=== PATIENT | female | born 1940 | race Two or more races ===

== ENCOUNTER 2017-10-25 21:48 | Emergency (ER) | payer MEDICARE ==
[2017-10-25] MEDS ORDERED: NS 0.9% 1000 ML* 1,000 ML IV ONE (21:57)
[2017-10-25 22:09] LABS: ABS Basophils 0 10^3/ul (0-0.2); ABS Eosinophils 0 10^3/ul (0-0.6); ABS Lymphocytes 3.5 10^3/ul (1.0-4.8); ABS Monocytes 0.7 10^3/ul (0-0.8); ABS Neutrophils 7.6 10^3/ul (1.5-7.7); ABS Nucleated RBC 0 10^3/ul; Eosinophil % 0.4 % (0-6); Hematocrit 39 % (35-47); Hemoglobin 12.6 g/dl (12.0-16.0); Lymphocyte % 29.4 % (25-47); Mean Corpuscular HGB Conc 33 g/dl (31-36); Mean Corpuscular Hemoglobin 30 pg (27-31); Mean Corpuscular Volume 91 fL (80-97); Mean Platelet Volume 9 um3 (7.4-10.4); Nucleated Red Blood Cells % 0.1; Platelet Count 183 10^3/ul (150-450); Red Blood Count 4.23 10^6/ul (4.0-5.4); Red Cell Distribution Width 14 % (10.5-15); White Blood Count 11.9 10^3/ul (3.5-10.8)
[2017-10-25 22:22] LABS: INR 1.16 (0.77-1.02)
[2017-10-25 22:24] LABS: EGFR Non-African American 72.7 (>60)
[2017-10-25] MEDS ORDERED: Iohexol 300* (CONTRAST) 10 ML SDV IV ONE (22:30)
[2017-10-25] MEDS ORDERED: Propofol* 200 ML ONE (23:34)
[2017-10-26] MEDS ORDERED: Ondansetron INJ* 2 MG/ML VIAL IV PRN (02:46)
[2017-10-26] MEDS ORDERED: Acetaminophen SUPP* 650 MG SUPP PR PRN (02:46)
[2017-10-26] MEDS ORDERED: Heparin VIAL(*) 5000 UNITS/ML VIAL (FIVE THOUSAND) IV SCH (03:00)
[2017-10-26] MEDS ORDERED: NS 0.9% 1000 ML* 1,000 ML IV SCH (03:00)
[2017-10-26] MEDS ORDERED: Heparin DRIP 25,000 UNITS(*) 25,000 UNITS/500 ML BAG IVPB SCH (03:00)
[2017-10-26] MEDS ORDERED: Propofol* 100 ML IV SCH (03:00)
[2017-10-26 05:02] LABS: ABS Basophils 0 10^3/ul (0-0.2); ABS Eosinophils 0 10^3/ul (0-0.6); ABS Lymphocytes 0.5 10^3/ul (1.0-4.8); ABS Monocytes 0.7 10^3/ul (0-0.8); ABS Nucleated RBC 0 10^3/ul; Eosinophil % 0 % (0-6); Hematocrit 35 % (35-47); Hemoglobin 11.5 g/dl (12.0-16.0); Lymphocyte % 3.1 % (25-47); Mean Corpuscular HGB Conc 33 g/dl (31-36); Mean Corpuscular Hemoglobin 29 pg (27-31); Mean Corpuscular Volume 90 fL (80-97); Mean Platelet Volume 9 um3 (7.4-10.4); Nucleated Red Blood Cells % 0; Platelet Count 161 10^3/ul (150-450); Red Blood Count 3.91 10^6/ul (4.0-5.4); Red Cell Distribution Width 14 % (10.5-15); White Blood Count 15.1 10^3/ul (3.5-10.8)
[2017-10-26 05:17] LABS: EGFR Non-African American 77.3 (>60)
[2017-10-26] MEDS ORDERED: Piperacillin/Tazobac ADVAN(*) 3.375 GM in NS 0.9% 100 ML* 100 ML IVPB ONE (05:17)
[2017-10-26] MEDS ORDERED: Levofloxacin 500 MG IVPREMIX(* 500 MG/100 ML BAG IVPB ONE (05:18)
--- NOTE | 2017-10-26 05:23 | ED ---
Singh Savage Angela, scribed for Mario Restrepo MD on 10/25/17 at 2212 . Adult Trauma - HPI Summary HPI Summary: This pt is a 77 y/o female presenting to [facility] via EMS for a fall and cardiac arrest. EMS reports the pt was going down the stairs when she fell down 8 steps. Fall was witnessed by family, per EMS. EMS notes the pt had no complaints prior to her fall. Pt was in cardiac arrest and had no CPR for approximately 4 minutes. After fire rescue arrived on scene, pt received 2 epinephrines and continued CPR. ROSC was obtained in 9 minutes. PMHx: Parkinson's disease. Per son, pt is able to ambulate independently up and down the stairs at baseline. - History of Current Complaint Stated Complaint: FALL Hx Obtained From: EMS Hx From Patient Unobtainable Due To: Extremis Mechanism of Injury: Fall Ambulatory at the Scene: No Loss of Consciousness: still comatose Onset/Duration: Started Minutes Ago, Traumatic, Still Present Pain Intensity: 0 - Allergy/Home Medications Allergies/Adverse Reactions: Allergies Allergy/AdvReac Type Severity Reaction Status Date / Time No Known Allergies Allergy Verified 12/06/15 18:35 PMH/Surg Hx/FS Hx/Imm Hx Endocrine/Hematology History: Reports: Hx Thyroid Disease Denies: Hx Diabetes Cardiovascular History: Denies: Hx Hypertension Respiratory History: Denies: Hx Asthma, Hx Chronic Obstructive Pulmonary Disease (COPD) GI History: Denies: Hx Ulcer Neurological History: Reports: Other Neuro Impairments/Disorders - Parkinson's Infectious Disease History: No Infectious Disease History: Denies: Hx Hepatitis, Hx Human Immunodeficiency Virus (HIV), Traveled Outside the [place] in Last 30 Days - Family History Known Family History: Positive: Unknown - due to level 5 caveat - extremis - Social History Alcohol Use: None Substance Use Type: Reports: None Hx Tobacco Use: Yes Smoking Status (MU): Former Smoker Review of Systems - ROS Summary Review of Systems Summary: ROS IS LIMITED DUE TO LEVEL 5 CAVEAT - extremis Negative: Fever Neurological: Other - unconscious All Other Systems Reviewed And Are Negative: No Physical Exam - Summary Physical Exam Summary: Appearance: GCS: 3 on arrival, no voluntary movements, agonal breathing, on backboard, orange blocks for head immobilization Skin: Warm and dry Eyes: pupils 3 mm bilaterally and sluggish to light. No voluntary extra ocular movements. Oculocephalic reflex not tested. ENT: No obvious abnormalities. Neck: Supple, nontender Respiratory: mechanical breath sounds with rhonchi bilaterally. Cardiovascular: Normal S1, S2. No murmurs. Normal distal pulses. Abdomen: Soft, nontender, mildly distended Musculoskeletal: unable to assess secondary to neurological status. Neurological: GCS: 3. Intubated and unresponsive on arrival. Psychiatric: Unable to assess. Triage Information Reviewed: Yes Vital Signs On Initial Exam: Initial Vitals Temp Pulse Resp BP Pulse Ox 96.8 F 82 12 133/75 82 10/25/17 22:02 10/25/17 22:02 10/25/17 22:02 10/25/17 22:02 10/25/17 22:02 Vital Signs Reviewed: Yes Completion Of Physical Exam Limited Due To: Extremis - Jose Raul Coma Scale Best Eye Response: 1 - None Best Motor Response: 1 - None Best Verbal Response: 1 - Intubated Coma Scale Total: 3.0 Diagnostics - Vital Signs Vital Signs Temp Pulse Resp BP Pulse Ox 10/25/17 22:02 96.8 F 82 12 133/75 82 - Laboratory Lab Results: Lab Results 10/25/17 10/25/17 10/25/17 Range/Units 21:57 21:59 21:59 WBC 11.9 H (3.5-10.8) 10^3/ul RBC 4.23 (4.0-5.4) 10^6/ul Hgb 12.6 (12.0-16.0) g/dl Hct 39 (35-47) % MCV 91 (80-97) fL MCH 30 (27-31) pg MCHC 33 (31-36) g/dl RDW 14 (10.5-15) % Plt Count 183 (150-450) 10^3/ul MPV 9 (7.4-10.4) um3 Neut % (Auto) 63.9 (38-83) % Lymph % (Auto) 29.4 (25-47) % [place] % (Auto) 6.0 (1-9) % Eos % (Auto) 0.4 (0-6) % Baso % (Auto) 0.3 (0-2) % Absolute Neuts (auto) 7.6 (1.5-7.7) 10^3/ul Absolute Lymphs (auto) 3.5 (1.0-4.8) 10^3/ul Absolute Monos (auto) 0.7 (0-0.8) 10^3/ul Absolute Eos (auto) 0 (0-0.6) 10^3/ul Absolute Basos (auto) 0 (0-0.2) 10^3/ul Absolute Nucleated RBC 0 10^3/ul Nucleated RBC % 0.1 INR (Anticoag Therapy) (0.77-1.02) APTT (26.0-36.3) seconds Patient Temperature ABG pH (7.35-7.45) ABG pH (Temp Correct) ABG pCO2 (35-45) mmHg ABG pCO2 (Temp Corrct ABG pO2 (80-100) mmHg ABG pO2 (Temp Correct ABG HCO3 (19-31) mmol/L ABG O2 Saturation (95-98) % ABG Base Excess (-2.0-2.0) Respiration Rate Ventilator Type Vent Mode FiO2 Inspiratory Time PEEP Pressure Support Pressure Control EPAP IPAP BiPAP Sodium 128 L (133-145) mmol/L Potassium 3.7 (3.5-5.0) mmol/L Chloride 96 L (101-111) mmol/L Carbon Dioxide 19 L (22-32) mmol/L Anion Gap 13 H (2-11) mmol/L BUN 13 (6-24) mg/dL Creatinine 0.77 (0.51-0.95) mg/dL Est GFR ( Amer) 93.5 (>60) Est GFR (Non-Af Amer) 72.7 (>60) BUN/Creatinine Ratio 16.9 (8-20) Glucose 263 H (70-100) mg/dL Lactic Acid 7.3 H* (0.5-2.0) mmol/L Calcium 8.3 L (8.6-10.3) mg/dL Total Bilirubin 0.50 (0.2-1.0) mg/dL AST 95 H (13-39) U/L ALT 12 (7-52) U/L Alkaline Phosphatase 103 (34-104) U/L Total Creatine Kinase 193 (10-223) U/L Troponin I 0.05 H* (<0.04) ng/mL B-Natriuretic Peptide ( - 100) pg/mL Total Protein 6.4 (6.4-8.9) g/dL Albumin 3.5 (3.2-5.2) g/dL Globulin 2.9 (2-4) g/dL Albumin/Globulin Ratio 1.2 (1-3) Blood Type Antibody Screen 10/25/17 10/25/17 10/25/17 Range/Units 21:59 21:59 21:59 WBC (3.5-10.8) 10^3/ul RBC (4.0-5.4) 10^6/ul Hgb (12.0-16.0) g/dl Hct (35-47) % MCV (80-97) fL MCH (27-31) pg MCHC (31-36) g/dl RDW (10.5-15) % Plt Count (150-450) 10^3/ul MPV (7.4-10.4) um3 Neut % (Auto) (38-83) % Lymph % (Auto) (25-47) % [place] % (Auto) (1-9) % Eos % (Auto) (0-6) % Baso % (Auto) (0-2) % Absolute Neuts (auto) (1.5-7.7) 10^3/ul Absolute Lymphs (auto) (1.0-4.8) 10^3/ul Absolute Monos (auto) (0-0.8) 10^3/ul Absolute Eos (auto) (0-0.6) 10^3/ul Absolute Basos (auto) (0-0.2) 10^3/ul Absolute Nucleated RBC 10^3/ul Nucleated RBC % INR (Anticoag Therapy) 1.16 H (0.77-1.02) APTT (26.0-36.3) seconds Patient Temperature ABG pH (7.35-7.45) ABG pH (Temp Correct) ABG pCO2 (35-45) mmHg ABG pCO2 (Temp Corrct ABG pO2 (80-100) mmHg ABG pO2 (Temp Correct ABG HCO3 (19-31) mmol/L ABG O2 Saturation (95-98) % ABG Base Excess (-2.0-2.0) Respiration Rate Ventilator Type Vent Mode FiO2 Inspiratory Time PEEP Pressure Support Pressure Control EPAP IPAP BiPAP Sodium (133-145) mmol/L Potassium (3.5-5.0) mmol/L Chloride (101-111) mmol/L Carbon Dioxide (22-32) mmol/L Anion Gap (2-11) mmol/L BUN (6-24) mg/dL Creatinine (0.51-0.95) mg/dL Est GFR ( Amer) (>60) Est GFR (Non-Af Amer) (>60) BUN/Creatinine Ratio (8-20) Glucose (70-100) mg/dL Lactic Acid (0.5-2.0) mmol/L Calcium (8.6-10.3) mg/dL Total Bilirubin (0.2-1.0) mg/dL AST (13-39) U/L ALT (7-52) U/L Alkaline Phosphatase (34-104) U/L Total Creatine Kinase (10-223) U/L Troponin I (<0.04) ng/mL B-Natriuretic Peptide 426 H ( - 100) pg/mL Total Protein (6.4-8.9) g/dL Albumin (3.2-5.2) g/dL Globulin (2-4) g/dL Albumin/Globulin Ratio (1-3) Blood Type B Positive Antibody Screen Negative 10/25/17 10/26/17 10/26/17 Range/Units 22:05 01:00 02:10 WBC (3.5-10.8) 10^3/ul RBC (4.0-5.4) 10^6/ul Hgb (12.0-16.0) g/dl Hct (35-47) % MCV (80-97) fL MCH (27-31) pg MCHC (31-36) g/dl RDW (10.5-15) % Plt Count (150-450) 10^3/ul MPV (7.4-10.4) um3 Neut % (Auto) (38-83) % Lymph % (Auto) (25-47) % [place] % (Auto) (1-9) % Eos % (Auto) (0-6) % Baso % (Auto) (0-2) % Absolute Neuts (auto) (1.5-7.7) 10^3/ul Absolute Lymphs (auto) (1.0-4.8) 10^3/ul Absolute Monos (auto) (0-0.8) 10^3/ul Absolute Eos (auto) (0-0.6) 10^3/ul Absolute Basos (auto) (0-0.2) 10^3/ul Absolute Nucleated RBC 10^3/ul Nucleated RBC % INR (Anticoag Therapy) (0.77-1.02) APTT (26.0-36.3) seconds Patient Temperature Not Reportable ABG pH 7.01 L* 7.35 (7.35-7.45) ABG pH (Temp Correct) Not Reportable ABG pCO2 67 H 38 (35-45) mmHg ABG pCO2 (Temp Corrct Not Reportable ABG pO2 226 H 256 H (80-100) mmHg ABG pO2 (Temp Correct Not Reportable ABG HCO3 13.5 L 21.7 (19-31) mmol/L ABG O2 Saturation 100.5 H 100.8 H (95-98) % ABG Base Excess -14.7 L -4.2 L (-2.0-2.0) Respiration Rate Not Reportable Ventilator Type Not Reportable Vent Mode aprv FiO2 80 Inspiratory Time 1.0 PEEP Not Reportable Pressure Support Not Reportable Pressure Control Not Reportable EPAP Not Reportable IPAP Not Reportable BiPAP Not Reportable Sodium (133-145) mmol/L Potassium (3.5-5.0) mmol/L Chloride (101-111) mmol/L Carbon Dioxide (22-32) mmol/L Anion Gap (2-11) mmol/L BUN (6-24) mg/dL Creatinine (0.51-0.95) mg/dL Est GFR ( Amer) (>60) Est GFR (Non-Af Amer) (>60) BUN/Creatinine Ratio (8-20) Glucose (70-100) mg/dL Lactic Acid (0.5-2.0) mmol/L Calcium (8.6-10.3) mg/dL Total Bilirubin (0.2-1.0) mg/dL AST (13-39) U/L ALT (7-52) U/L Alkaline Phosphatase (34-104) U/L Total Creatine Kinase (10-223) U/L Troponin I 0.32 H* (<0.04) ng/mL B-Natriuretic Peptide ( - 100) pg/mL Total Protein (6.4-8.9) g/dL Albumin (3.2-5.2) g/dL Globulin (2-4) g/dL Albumin/Globulin Ratio (1-3) Blood Type Antibody Screen 10/26/17 10/26/17 10/26/17 Range/Units 04:30 04:45 04:45 WBC 15.1 H (3.5-10.8) 10^3/ul RBC 3.91 L (4.0-5.4) 10^6/ul Hgb 11.5 L (12.0-16.0) g/dl Hct 35 (35-47) % MCV 90 (80-97) fL MCH 29 (27-31) pg MCHC 33 (31-36) g/dl RDW 14 (10.5-15) % Plt Count 161 (150-450) 10^3/ul MPV 9 (7.4-10.4) um3 Neut % (Auto) 92.5 H (38-83) % Lymph % (Auto) 3.1 L (25-47) % [place] % (Auto) 4.3 (1-9) % Eos % (Auto) 0 (0-6) % Baso % (Auto) 0.1 (0-2) % Absolute Neuts (auto) 14.0 H (1.5-7.7) 10^3/ul Absolute Lymphs (auto) 0.5 L (1.0-4.8) 10^3/ul Absolute Monos (auto) 0.7 (0-0.8) 10^3/ul Absolute Eos (auto) 0 (0-0.6) 10^3/ul Absolute Basos (auto) 0 (0-0.2) 10^3/ul Absolute Nucleated RBC 0 10^3/ul Nucleated RBC % 0 INR (Anticoag Therapy) (0.77-1.02) APTT 32.8 (26.0-36.3) seconds Patient Temperature ABG pH (7.35-7.45) ABG pH (Temp Correct) ABG pCO2 (35-45) mmHg ABG pCO2 (Temp Corrct ABG pO2 (80-100) mmHg ABG pO2 (Temp Correct ABG HCO3 (19-31) mmol/L ABG O2 Saturation (95-98) % ABG Base Excess (-2.0-2.0) Respiration Rate Ventilator Type Vent Mode FiO2 Inspiratory Time PEEP Pressure Support Pressure Control EPAP IPAP BiPAP Sodium (133-145) mmol/L Potassium (3.5-5.0) mmol/L Chloride (101-111) mmol/L Carbon Dioxide (22-32) mmol/L Anion Gap (2-11) mmol/L BUN (6-24) mg/dL Creatinine (0.51-0.95) mg/dL Est GFR ( Amer) (>60) Est GFR (Non-Af Amer) (>60) BUN/Creatinine Ratio (8-20) Glucose (70-100) mg/dL Lactic Acid (0.5-2.0) mmol/L Calcium (8.6-10.3) mg/dL Total Bilirubin (0.2-1.0) mg/dL AST (13-39) U/L ALT (7-52) U/L Alkaline Phosphatase (34-104) U/L Total Creatine Kinase (10-223) U/L Troponin I 0.38 H* (<0.04) ng/mL B-Natriuretic Peptide ( - 100) pg/mL Total Protein (6.4-8.9) g/dL Albumin (3.2-5.2) g/dL Globulin (2-4) g/dL Albumin/Globulin Ratio (1-3) Blood Type Antibody Screen 10/26/17 Range/Units 04:45 WBC (3.5-10.8) 10^3/ul RBC (4.0-5.4) 10^6/ul Hgb (12.0-16.0) g/dl Hct (35-47) % MCV (80-97) fL MCH (27-31) pg MCHC (31-36) g/dl RDW (10.5-15) % Plt Count (150-450) 10^3/ul MPV (7.4-10.4) um3 Neut % (Auto) (38-83) % Lymph % (Auto) (25-47) % [place] % (Auto) (1-9) % Eos % (Auto) (0-6) % Baso % (Auto) (0-2) % Absolute Neuts (auto) (1.5-7.7) 10^3/ul Absolute Lymphs (auto) (1.0-4.8) 10^3/ul Absolute Monos (auto) (0-0.8) 10^3/ul Absolute Eos (auto) (0-0.6) 10^3/ul Absolute Basos (auto) (0-0.2) 10^3/ul Absolute Nucleated RBC 10^3/ul Nucleated RBC % INR (Anticoag Therapy) (0.77-1.02) APTT (26.0-36.3) seconds Patient Temperature ABG pH (7.35-7.45) ABG pH (Temp Correct) ABG pCO2 (35-45) mmHg ABG pCO2 (Temp Corrct ABG pO2 (80-100) mmHg ABG pO2 (Temp Correct ABG HCO3 (19-31) mmol/L ABG O2 Saturation (95-98) % ABG Base Excess (-2.0-2.0) Respiration Rate Ventilator Type Vent Mode FiO2 Inspiratory Time PEEP Pressure Support Pressure Control EPAP IPAP BiPAP Sodium 129 L (133-145) mmol/L Potassium 3.9 (3.5-5.0) mmol/L Chloride 98 L (101-111) mmol/L Carbon Dioxide 21 L (22-32) mmol/L Anion Gap 10 (2-11) mmol/L BUN 17 (6-24) mg/dL Creatinine 0.73 (0.51-0.95) mg/dL Est GFR ( Amer) 99.4 (>60) Est GFR (Non-Af Amer) 77.3 (>60) BUN/Creatinine Ratio 23.3 H (8-20) Glucose 164 H (70-100) mg/dL Lactic Acid (0.5-2.0) mmol/L Calcium 8.5 L (8.6-10.3) mg/dL Total Bilirubin 0.70 (0.2-1.0) mg/dL AST 112 H (13-39) U/L ALT 29 (7-52) U/L Alkaline Phosphatase 88 (34-104) U/L Total Creatine Kinase (10-223) U/L Troponin I (<0.04) ng/mL B-Natriuretic Peptide ( - 100) pg/mL Total Protein 6.2 L (6.4-8.9) g/dL Albumin 3.5 (3.2-5.2) g/dL Globulin 2.7 (2-4) g/dL Albumin/Globulin Ratio 1.3 (1-3) Blood Type Antibody Screen Result Diagrams: 10/26/17 04:45 10/26/17 04:45 Lab Statement: Any lab studies that have been ordered have been reviewed, and results considered in the medical decision making process. - Radiology Chest XR Xray Interpretation: Positive (See Comments) - ET tube in the correct position. Bilateral patchy infiltrate suspicious for pneumonia. Radiology Interpretation Completed By: ED Physician - CT CT Brain CT Interpretation: Positive (See Comments) - IMPRESSION: Left sphenoid sinusitis. Dr. Restrepo has reviewed this radiology report. CT Interpretation Completed By: Radiologist CT Neck CT Interpretation: Positive (See Comments) - IMPRESSION: Slightly displaced fracture of the anterior arch and left posterior lamina of C1. Dr. Restrepo has reviewed this radiology report. CT Interpretation Completed By: Radiologist CT Chest/Abdomen/Pelvis CT Interpretation: Positive (See Comments) - IMPRESSION: Age-indeterminate compression fracture of T12 with 18% loss of anterior height. Airspace opacities in the lungs suggests aspiration or pneumonia. Diffuse groundglass densities and prominent interstitium suggest fluid overload. There are nondisplaced fractures of the right anterior second third and fourth ribs. Dr. Restrepo has reviewed this radiology report. CT Interpretation Completed By: Radiologist - EKG 21:50 Cardiac Rate: NL EKG Rhythm: Sinus Rhythm - at 81 bpm EKG Interpretation: RBBB and LAFB. 02:10 Cardiac Rate: Bradycardia EKG Rhythm: Sinus Bradycardia - at 53 bpm - Additional Comments Diagnostic Additional Comments: MRI Brain, as read by radiologist: IMPRESSION: No acute findings. MRI Cervical Spine, as read by radiologist: IMPRESSION: Study limited by motion artifact. The fracture C1 is noted on CT. Cervical cord appears normal without hematoma or steonsis. MRI Thoracic Spine, as read by radiologist: IMPRESSION: 20-25% compression fracture at T12. Dr. Restrepo has reviewed these radiology report. Adult Trauma Course/Dx - Course Assessment/Plan: Intubated prior to arrival. ET tube verified with auscultation and chest XR. CTs show fracture of C1, right sided rib fractures x3, and thoracic compression fracture. MRI findings unremarkable. Pt scheduled to transfer to [facility] for trauma center evaluation and further ICU care. I spoke with her family on the phone who agrees with transfer. Vital signs are stable. Sedated with propofol. After discussion with Dr. Blanchard, it was decided that transfer to [facility] for trauma evaluatino and further icu care is appropriate. Dr. Al accepts the pt for transfer at [facility]. - Diagnoses Provider Diagnoses: Respiratory failure, Combined resp. and metabolic acidosis, C1 cervical fracture, Multiple fractures of ribs of right side, Cardiac arrest, Aspiration pneumonia, Compression fracture of thoracic spine - Physician Notifications Discussed Care Of Patient With: Jim Shetty Time Discussed With Above Provider: 23:39 Instructed by Provider To: Other - Dr. Shetty, radiologist, is calling about CT results. [23:53] I discussed pt care with Dr. Cramer, neurosurgeon. [00:01] I spoke with Dr. Johnson, radiologist, to get approval for MRI. [00:21] I discussed case with Dr. Blanchard, who will see the pt in the ED. [00:25] I spoke with Dr. Ling, process control manager. - Critical Care Time Critical Care Time: 75-104 min - 120 minutes - Excluding procedures I spend time speaking with the family and other providers, titrating medications, and monitoring clinical response. Discharge - Discharge Plan Condition: Guarded Disposition: TRANS HIGHER LVL OF CARE FAC Discharge Disposition Comment: [facility] Referrals: Daisy Conti MD [Primary Care Provider] - The documentation as recorded by the Singh kim Angela accurately reflects the service I personally performed and the decisions made by me, Mario Restrepo MD.
[2017-10-26 05:42] LABS: Urine Appearance Cloudy; Urine Blood 2+ (Negative); Urine Color Yellow; Urine Ketones Negative (Negative); Urine Protein 2+(100 mg/dL) (Negative); Urine Specific Gravity 1.029 (1.010-1.030); Urine Urobilinogen Negative (Negative)
[2017-10-26 06:17] VITALS: BP 125/58
--- NOTE | 2017-10-26 08:05 | RAD ---
HISTORY: Trauma COMPARISONS: None VIEWS: 1: frontal portable view of the chest and upper abdomen at 10:35 PM, performed supine on a backboard. FINDINGS: LINES AND TUBES: The endotracheal tube is noted with the tip overlying the trachea between the clavicles and the susan. CARDIOMEDIASTINAL SILHOUETTE: The cardiomediastinal silhouette is normal for portable technique. PLEURA: The costophrenic angles are sharp. No pleural abnormalities are noted. LUNG PARENCHYMA: There is diffuse alveolar opacification of the left lung field with patchy alveolar opacification of the right lung field. There is diffuse reticular pattern. ABDOMEN: The upper abdomen is clear. There is no subphrenic gas. BONES AND SOFT TISSUES: No bone or soft tissue abnormalities are noted. IMPRESSION: 1. LINES AND TUBES ABOVE. 2. AIRSPACE DISEASE OF THE LUNGS BILATERALLY, GREATER ON THE LEFT THAN THE RIGHT WITH A DIFFUSE INTERSTITIAL OPACIFICATIONS, SUGGESTIVE OF PULMONARY ALVEOLAR AND INTERSTITIAL EDEMA
--- NOTE | 2017-10-26 08:14 | RAD ---
indication: Fall after cardiac arrest. COMPARISON: None A CT scan of the brain and c-spine was performed without intravenous contrast enhancement. Contiguous axial sections were obtained from the lung apices through the vertex. Evaluation of the brain and C-spine is limited by motion artifact. BRAIN: The ventricles, cisterns and sulci are within normal limits. No significant focal abnormality or mass effect is seen. The tucker-white differentiation is adequately maintained. There is no intracranial hemorrhage. No significant bony abnormality is present. The mastoid air cells are appropriately aerated. There is complete opacification of the left sphenoid sinus. The remaining visualized paranasal sinuses are adequately aerated. C-SPINE: An endotracheal tube and nasogastric tube are noted in appropriate position. Depicted best on the axial plane images there is fracture at the left anterior arch and left posterior lamina of the C1 vertebral body (axial image 13 of 71). At the anterior fracture site there is approximately 4 mm of distraction at the fracture site. The dens appears to be intact. There is no significant widening at the atlantodental interval. Multilevel degenerative changes of the cervical spine includes loss of intervertebral disc height. There is reversal of the normal cervical lordosis with the apex at C5/C6. At the lower cervical spine there is near complete obliteration of the intervertebral disc space with exuberant marginal osteophyte formation. There is no hyperdense material in the cervical canal to indicate hemorrhage. The visualized musculature and soft tissues are normal. There is no gross lymphadenopathy visualized. There are groundglass opacifications at the bilateral lung apices. IMPRESSION: 1. No calvarial fracture or acute intracranial hemorrhage. 2. Fracture of the C1 vertebra involving the left anterior arch and left posterior lamina.
--- NOTE | 2017-10-26 08:17 | RAD ---
HISTORY: Trauma, unwitnessed fall, cardiac arrest COMPARISONS: None TECHNIQUE: Multiple contiguous axial CT scans were obtained of the chest, abdomen, and pelvis after the administration of intravenous contrast. Coronal and sagittal multiplanar reformations are submitted for review.. Oral contrast was not administered. Delayed images were obtained through the abdomen and pelvis. FINDINGS: The study is limited by patient motion artifact. CHEST NECK AND THYROID: The lower neck and thyroid are unremarkable. CHEST WALL: There is no lower cervical, axillary, or supraclavicular lymphadenopathy by size criteria. HEART AND PERICARDIUM: The heart is unremarkable. AORTA AND PULMONARY VASCULATURE: The aorta and pulmonary vasculature are normal. MEDIASTINUM: There is no mediastinal lymphadenopathy by size criteria. AMANDA: There is no hilar lymphadenopathy by size criteria. AIRWAY AND ESOPHAGUS: An endotracheal tube is noted within the trachea with the tip in the clavicles and the susan. A gastric tube is noted with the tip in the stomach in a prepyloric position. LUNG PARENCHYMA: There is consolidation of the left lower lobe. There is ground less opacification of the upper lobes bilaterally and of the right middle and lower lobes. There is interlobular septal thickening with an apical predominance. PLEURA: No pleural abnormalities are noted. BONES AND SOFT TISSUES: There are nondisplaced fractures of the right second, third, and fourth ribs. Evaluation of the sternum is limited by motion artifact. A sternal fracture and appearance. ABDOMEN/PELVIS: LIVER: The liver is normal in shape, size, contour, and attenuation. BILE DUCTS: There is no intrahepatic or extrahepatic biliary dilatation. GALLBLADDER: The gallbladder is normal, without pericholecystic inflammatory change. PANCREAS: The pancreas is normal, without mass or ductal dilatation. SPLEEN: Normal in size and appearance. UPPER GI TRACT: As noted above, gastric tube is noted with the tip in a prepyloric position.. SMALL BOWEL & MESENTERY: The small bowel is normal in contour, course, and caliber. There is no obstruction or dilatation. COLON: The colon is normal in contour, course, caliber. There is no pericolonic inflammatory change. ADRENALS: Normal bilaterally. KIDNEYS: The kidneys are normal in shape, size, contour, and axis. There is no hydronephrosis or nephrolithiasis. BLADDER: The bladder is collapsed around a Anderson catheter PELVIC ORGANS: The uterus is enlarged with calcified fibroids. AORTA: There is calcific atherosclerotic disease of the abdominal aorta and its branches, without aneurysmal dilatation IVC: Unremarkable LYMPH NODES: There is no lymphadenopathy by size criteria. ABDOMINAL WALL: There is no evidence for abdominal wall hernia. BONES AND SOFT TISSUES: Degenerative changes are noted of the spine. There is grade 1 anterolisthesis of L3 on L4. There is anterior wedging of T12. There is no osseous retropulsion. OTHER: There is no active arterial extravasation. IMPRESSION: 1. THERE ARE NONDISPLACED FRACTURES OF THE RIGHT SECOND, THIRD, AND FOURTH RIBS. 2. THERE IS MIXED INTERSTITIAL AND AIRSPACE DISEASE OF THE LUNGS BILATERALLY. THE DIFFERENTIAL INCLUDES PULMONARY INTERSTITIAL AND ALVEOLAR EDEMA, PULMONARY EDEMA WITH SUPERIMPOSED CONSOLIDATION, INCLUDING ASPIRATION. 3. FIBROID UTERUS. 4. ATHEROSCLEROSIS. 5. THERE IS AN AGE-INDETERMINATE COMPRESSION FRACTURE OF T12, WITHOUT OSSEOUS RETROPULSION. PRELIMINARY FINDINGS WERE DISCUSSED WITH DR. THOMPSON BY DR. MCCANN AT APPROXIMATELY 11:39 PM ON OCTOBER 25, 2017
--- NOTE | 2017-10-26 08:21 | RAD ---
HISTORY: Trauma COMPARISONS: CT dated October 25, 2017 TECHNIQUE: The following sequences were obtained of the thoracic spine: Sagittal T1 and T2-weighted images, sagittal STIR images, coronal T2-weighted images, and axial T2-weighted images. . FINDINGS: The study is limited by patient motion artifact. Localization is based on counting from C2 SPINAL CORD, CONUS, AND CAUDA EQUINA: The visualized spinal cord, conus, and cauda equina are normal in caliber, position, and signal intensity. ALIGNMENT: The alignment is normal. VERTEBRAL BODIES: There is multilevel anterolateral marginal osteophyte formation. There is anterior wedging of T12, corresponding to the compression fracture noted on CT. There is no bone edema, consistent with a chronic fracture. There is a significant osseous retropulsion. JOINTS: There is osteoporosis of the costovertebral articulations. MUSCULATURE: Unremarkable INTERVERTEBRAL DISCS: There is diffuse loss of intervertebral disc height and T2 signal throughout the spine. AXIAL IMAGES: There is no central canal stenosis or neuroforaminal narrowing. SOFT TISSUES: As noted on the CT, there is consolidation left lower lobe with airspace disease noted in the right lower lobe dependently. OTHER: None. IMPRESSION: 1. CHRONIC COMPRESSION FRACTURE OF T12 WITHOUT OSSEOUS RETROPULSION. 2. NO SIGNIFICANT NEURAL FORAMINAL NARROWING OR CENTRAL CANAL STENOSIS.
--- NOTE | 2017-10-26 08:26 | RAD ---
HISTORY: C1 fracture, follow-up cardiac arrest COMPARISONS: CT dated October 25, 2017 TECHNIQUE: The following sequences were obtained of the cervical spine: Sagittal T1- and T2-weighted images, sagittal STIR images, axial T2 and gradient echo images. FINDINGS: The study is limited by patient motion artifact. BRAIN AND SPINAL CORD: Evaluation is limited by patient motion. The visualized brain and cord are grossly normal. There is no appreciable epidural hematoma. ALIGNMENT: There is straightening with reversal of the normal cervical lordosis. There is grade 1 anterolisthesis of C4 on C5. VERTEBRAL BODIES: The C1 fracture noted on CT along the anterior margin posterior lamina is again identified, but is not well visualized secondary to patient motion. JOINTS: There is no appreciable subluxation or dislocation. There is edema along the lateral atlantoaxial articulations. MUSCULATURE: Unremarkable INTERVERTEBRAL DISCS: There is diffuse loss of intervertebral disc height and T2 signal throughout the spine. AXIAL IMAGES: Evaluation is limited secondary to patient motion artifact. SOFT TISSUES: There is edema of the intraspinous ligament at C1-C2. There is edema along the lateral and axial articulations. OTHER: An endotracheal tube is noted IMPRESSION: 1. MARKEDLY LIMITED STUDY SECONDARY TO PATIENT MOTION ARTIFACT. 2. THERE IS NO APPRECIABLE EPIDURAL HEMATOMA. 3. AGAIN NOTED IS THE COMMINUTED FRACTURE OF THE C1 ARCH, NOT WELL CHARACTERIZED ON CT SECONDARY TO PATIENT MOTION. 4. THERE IS EDEMA OF THE INTRASPINOUS LIGAMENT AND LATERAL ATLANTOAXIAL ARTICULATIONS CONSISTENT WITH TRAUMA.
--- NOTE | 2017-10-26 08:40 | RAD ---
HISTORY: Trauma, cardiac arrest, unwitnessed fall COMPARISONS: CT dated October 25, 2017 TECHNIQUE: The following sequences were obtained of the head: Sagittal T1-weighted images, axial T2-weighted images, axial FLAIR images, axial susceptibility weighted images, axial T1-weighted images. Additionally, axial diffusion-weighted images were obtained with calculated apparent diffusion coefficients. FINDINGS: The study is limited by patient motion artifact. HEMORRHAGE/INFARCT: There is no hemorrhage or acute infarct. MASSES/SHIFT: There is no mass or shift. EXTRA-AXIAL SPACES/MENINGES: There are no extra-axial fluid collections. SULCI AND VENTRICLES: The sulci and ventricles are normal in size and position for the patient's stated age. CEREBRUM: There is elevated T2/FLAIR signal in the periventricular and subcortical white matter. BRAINSTEM: There are no focal parenchymal abnormalities. CEREBELLUM: There are no focal parenchymal abnormalities. The cerebellar tonsils are normal in size and position. SELLA: The sella is normal. PINEAL: The pineal region is clear. CP ANGLE/TEMPORAL BONES: The labyrinthine structures are grossly normal. VESSELS: Normal flow-voids are noted within the visualized vertebral vasculature. DIFFUSION ABNORMALITIES: There are no diffusion abnormalities. PARANASAL SINUSES/MASTOIDS: There is a fluid-fluid level within the sphenoid sinus. ORBITS: The orbits are unremarkable. BONES AND SOFT TISSUE: No bone or soft tissue abnormalities are noted. OTHER: None 1. IMPRESSION: 2. CHRONIC SMALL VESSEL ISCHEMIC CHANGES. NO RESTRICTED DIFFUSION TO SUGGEST ACUTE INFARCT. 3. THERE IS A BLOOD-FLUID LEVEL WITHIN THE SPHENOID SINUS, WHICH MAY INDICATE THE PRESENCE OF A SKULL BASE FRACTURE. CONSIDER FURTHER EVALUATION WITH CT OF THE SKULL BASE. PRELIMINARY FINDINGS WERE DISCUSSED WITH DR. THOMPSON IN THE EMERGENCY DEPARTMENT AT APPROXIMATELY 8:36 AM ON OCTOBER 26, 2017.
[2017-10-26] MEDS ORDERED: Pantoprazole IV* 40 MG IV SCH (09:00)
== END 2017-10-26 06:38 | disposition short-term general hospital (02) ==
LOC: ED 21:48 → ICU 10-26 02:36 → UNDOADMIN 10-26 02:36 → ED 10-26 06:38
DX: J96.90 Respiratory failure, unspecified, unspecified whether with hypoxia or hypercapnia (principal); E87.4 Mixed disorder of acid-base balance; S12.000A Unspecified displaced fracture of first cervical vertebra, initial encounter for closed fracture; X58.XXXA Exposure to other specified factors, initial encounter; S22.41XA Multiple fractures of ribs, right side, initial encounter for closed fracture; I46.9 Cardiac arrest, cause unspecified; J69.0 Pneumonitis due to inhalation of food and vomit; S22.9XXA Fracture of bony thorax, part unspecified, initial encounter for closed fracture; W10.9XXA Fall (on) (from) unspecified stairs and steps, initial encounter; Y92.9 Unspecified place or not applicable; I45.10 Unspecified right bundle-branch block; R00.1 Bradycardia, unspecified; J32.3 Chronic sphenoidal sinusitis; Z87.891 Personal history of nicotine dependence; G20 Parkinson's disease; E07.9 Disorder of thyroid, unspecified
CPT/HCPCS: 36415; 36600; 70450; 70551; 71045; 71260; 72125; 72141; 72146; 74177; 80053; 81003; 81015; 82550; 82803; 83605; 83880; 84484; 85025; 85610; 85730; 86850; 86900; 86901; 93005; 94002; 96360; 96374; 96375; 99285; J1956; J2543; J2704